=== PATIENT | male | born 1975 | race Caucasian/White ===

== ENCOUNTER 2017-04-30 01:18 | Emergency (ER) | payer SELFPAY ==
[~2017-04-30] VITALS: Ht 170.2 cm; Wt 77.3 kg
[~2017-04-30 01:18] MED LIST: AMOXICILLIN 50500 MG PO; CEPHALEXIN500 M1 PO; CLINDAMYCIN300 MG PO; FLEXERIL10 MG PO; LORTAB 5/500 501 TAB; LORTAB 5/500 501 TAB PO; MOTRIN800 MG PO; NO HOME MEDICATIONS; NORCO 325 MG-51 TAB PO; NORCO 325 MG-7.1 TAB PO; PENICILLIN250 MG PO; PERCOCET 325 MG1 TA2 PO; PERCOCET 325 MG1 TAB PO; PERCOCET 5/321 UDTAB PO; VICODIN 5/5001 UDTAB PO; ZOFRAN4 M1 PO
[2017-04-30 01:20] VITALS: TEMP 98
[2017-04-30] MEDS ORDERED: NORCO 325 MG-51 TAB PO (02:42)
[2017-04-30 03:26] VITALS: BP 139/94; PULSE 89
== END 2017-04-30 03:30 | disposition home or self-care (01) ==
LOC: COL.ER 01:18
DX: T15.01XA Foreign body in cornea, right eye, initial encounter (principal); X58.XXXA Exposure to other specified factors, initial encounter; F17.210 Nicotine dependence, cigarettes, uncomplicated

== ENCOUNTER 2018-06-17 15:58 | Emergency (ER) | payer SELFPAY ==
[~2018-06-17] VITALS: Ht 172.7 cm; Wt 72.7 kg
[2018-06-17 16:05] VITALS: BP 135/84; PULSE 106; TEMP 98.1
== END 2018-06-17 17:35 | disposition home or self-care (01) ==
LOC: COL.ER 15:58
DX: S81.811A Laceration without foreign body, right lower leg, initial encounter (principal); W22.8XXA Striking against or struck by other objects, initial encounter; Y99.0 Civilian activity done for income or pay

== ENCOUNTER 2020-01-28 17:31 | Emergency (ER) | payer SELFPAY ==
[2020-01-28 17:36] VITALS: TEMP 96
[2020-01-28 17:50] LABS: BASO % 0.3 % (0.0-2.0); EOS # 0.1 (0.0-0.7); EOS % 0.9 % (0-4.0); GRAN # 7.9 (1.4-6.5); GRAN % 66.6 % (42.2-75.2); HEMATOCRIT 47.4 % (42.0-52.0); HEMOGLOBIN 15.8 g/dl (13.5-18.0); LYMPH # 3.2 (1.2-3.4); LYMPH % 26.8 % (20.0-51.0); MEAN CELL VOLUME 89 fl (80.0-100.0); MEAN CORPUSCULAR HEMOGLOBIN 30 pg (27.0-31.0); MEAN CORPUSCULAR HGB CONC 33 g/dl (33.0-37.0); MEAN PLATELET VOLUME 11.7 fl (7.4-10.4); MONO # 0.6 (0.1-0.6); MONO % 4.9 % (1.7-9.3); PLATELET COUNT 192 K/mm3 (130-400); RED BLOOD COUNT 5.31 M/mm3 (4.20-5.60); REDCELL DISTRIBUTION WIDTH-CV 12.8 % (11.5-14.5)
[2020-01-28 18:07] LABS: ALBUMIN 3.6 gm/dL (3.5-5.0); BILIRUBIN,TOTAL 0.3 mg/dL (0.0-1.0); C-REACTIVE PROTEIN 1.6 mg/dL (0.0-0.9); CALCIUM 8.3 mg/dL (8.4-10.2); CREATININE, serum 0.97 (0.66-1.25); POTASSIUM 3.8 mmol/L (3.4-5.0); TOTAL PROTEIN 6.3 gm/dL (6.4-8.2)
[2020-01-28] MEDS ORDERED: ZOFRAN ODT4 MG PO (19:33)
[2020-01-28] MEDS ORDERED: CEPHALEXIN500 M1 PO (19:33)
[2020-01-28] MEDS ORDERED: NORCO 325 MG-51 TAB PO (19:33)
[2020-01-28 19:58] VITALS: BP 121/85; PULSE 83
== END 2020-01-28 20:50 | disposition home or self-care (01) ==
LOC: COL.ER 17:31
PROVIDERS: Emergency Medicine
DX: R11.10 Vomiting, unspecified (principal); R19.7 Diarrhea, unspecified; F17.210 Nicotine dependence, cigarettes, uncomplicated
CPT/HCPCS: J1885; J2405; J3010; J7030; Q9967

== ENCOUNTER 2020-08-24 12:52 | Emergency (ER) | payer SELFPAY ==
[~2020-08-24] VITALS: Ht 170.2 cm; Wt 68.2 kg
[~2020-08-24 12:52] MED LIST changes: +ZOFRAN ODT4 MG PO
[2020-08-24 12:56] VITALS: TEMP 97.2
[2020-08-24] MEDS ORDERED: PREDNISONE20 MG PO (14:04)
[2020-08-24] MEDS ORDERED: EPIPEN 2-PAK1 MG/ML IM (14:04)
[2020-08-24] MEDS ORDERED: CLEOCIN HCL300 MG PO (14:08)
[2020-08-24 15:29] VITALS: BP 138/96; PULSE 84
== END 2020-08-24 15:30 | disposition home or self-care (01) ==
LOC: COL.ER 12:52
DX: T88.6XXA Anaphylactic reaction due to adverse effect of correct drug or medicament properly administered, initial encounter (principal); T36.1X5A Adverse effect of cephalosporins and other beta-lactam antibiotics, initial encounter
CPT/HCPCS: J2930; J7030

== ENCOUNTER 2021-04-01 16:23 | Emergency (ER) | payer SELFPAY ==
[~2021-04-01] VITALS: Ht 170.2 cm; Wt 72.7 kg
[~2021-04-01 16:23] MED LIST changes: +CLEOCIN HCL300 MG PO; +EPIPEN 2-PAK1 MG/ML IM; +PREDNISONE20 MG PO
[2021-04-01 16:32] VITALS: TEMP 97
[2021-04-01] MEDS ORDERED: FLEXERIL 1010 MG/TAB PO (17:30)
[2021-04-01 17:40] VITALS: BP 129/92; PULSE 85
== END 2021-04-01 17:40 | disposition home or self-care (01) ==
LOC: COL.ER 16:23
DX: M54.5 Low back pain (principal); F17.210 Nicotine dependence, cigarettes, uncomplicated; W01.198A Fall on same level from slipping, tripping and stumbling with subsequent striking against other object, initial encounter
CPT/HCPCS: J1885

== ENCOUNTER 2024-06-10 15:32 | Emergency (ER) | payer SELFPAY ==
[~2024-06-10] VITALS: Ht 170.2 cm; Wt 77.0 kg
[~2024-06-10 15:32] MED LIST changes: +DOXYCYCLINE 10100 MG PO; +FLEXERIL 1010 MG/TAB PO; +VOLTAREN 75 DR75 MG PO
[2024-06-10 15:44] VITALS: BP 155/83; TEMP 98.4
[2024-06-10 16:44] LABS: BASO % 0.2 % (0.0-2.0); EOS # 0.1 K/mm3 (0.0-0.7); EOS % 0.6 % (0.0-4.0); GRAN # 9.2 K/mm3 (1.4-6.5); GRAN % 71.3 % (42.2-75.2); HEMOGLOBIN 14.6 g/dl (13.5-18.0); LYMPH # 2.8 K/mm3 (1.2-3.4); LYMPH % 21.3 % (20.0-51.0); MEAN CELL VOLUME 88 fl (80.0-100.0); MEAN CORPUSCULAR HEMOGLOBIN 30 pg (27-31); MEAN CORPUSCULAR HGB CONC 34 g/dl (33.0-37.0); MEAN PLATELET VOLUME 12.3 fl (7.4-10.4); MONO # 0.8 K/mm3 (0.1-0.6); MONO % 6.4 % (1.7-9.3); PLATELET COUNT 191 K/mm3 (130-400); RED BLOOD COUNT 4.88 M/mm3 (4.20-5.60); REDCELL DISTRIBUTION WIDTH-CV 13.2 % (11.5-14.5)
[2024-06-10 16:57] LABS: ERYTHROCYTE SEDIMENTATION RATE 24 mm/hr (0-15)
[2024-06-10] MEDS ORDERED: cefTRIAXone 1 G in Water For Injection,Sterile 10 ML IV ONE (17:15)
[2024-06-10 17:19] LABS: ALBUMIN 3.7 g/dL (3.5-5.0); BILIRUBIN,TOTAL 0.6 mg/dL (0.2-1.2); C-REACTIVE PROTEIN 6.48 mg/dL (0.00-0.50); CALCIUM 9.1 mg/dL (8.4-10.2); CREATININE, serum 0.87 mg/dL (0.72-1.25); POTASSIUM 3.8 mEq/L (3.5-4.5)
[2024-06-10] MEDS ORDERED: CEPHALEXIN500 M1 PO (17:25)
[2024-06-10 17:50] VITALS: PULSE 88
== END 2024-06-10 17:50 | disposition home or self-care (01) ==
LOC: COL.ER 15:32
PROVIDERS: Physician Assistant
DX: M70.41 Prepatellar bursitis, right knee (principal); L03.115 Cellulitis of right lower limb
CPT/HCPCS: J0696